=== PATIENT | female | born 1965 | race African-American/Black ===

== ENCOUNTER 2022-09-17 16:18 | Emergency (ER) | payer SELFPAY ==
[~2022-09-17] VITALS: Ht 172.7 cm; Wt 59.0 kg
[2022-09-17 17:21] LABS: BASOPHILS % 0.9 % (0.0-2.0); EOSINOPHILS % 0.5 % (0.0-5.0); HEMATOCRIT. 40.2 % (36.0-48.0); HEMOGLOBIN. 13.5 g/dL (12.0-16.0); LYMPHOCYTES % 33.3 % (20.0-50.0); MEAN CORPUSCULAR VOLUME 89.7 fL (81.0-99.0); MEAN PLATELET VOLUME 8.3 fl (7.4-10.4); MONOCYTES % 6.1 % (2.0-8.0); NEUTROPHILS % 59.2 % (40.0-76.0); PLATELET 160 x1000/uL (130-400); RED BLOOD CELL COUNT 4.49 mill/uL (4.2-5.4); RED CELL DISTRIBUTION WIDTH 14.2 % (11.6-14.6)
[2022-09-17 17:29] LABS: CHLORIDE 109 mEq/L (98-107)
[2022-09-17 17:34] LABS: ETHANOL BLOOD < 10 mg/dL
[2022-09-17 18:05] VITALS: BP 127/81
== END 2022-09-17 18:40 | disposition home or self-care (01) ==
LOC: ER 16:18 → CANBEDREQ 21:24
DX: R53.1 Weakness (principal)
CPT/HCPCS: 36415; 71045; 80053; 80320; 83880; 84484; 85025; 99285; G0480

== ENCOUNTER 2023-02-19 15:07 | Emergency (ER) | payer MEDICAID ==
[~2023-02-19] VITALS: Ht 170.2 cm; Wt 87.0 kg
[2023-02-19 15:13] VITALS: BP 115/63; PULSE 107; RESP 16; TEMP 98.7; O2SAT 95
[2023-02-19] MEDS ORDERED: EXCEDRIN (15:13)
== END 2023-02-19 19:07 | disposition home or self-care (01) ==
LOC: ER 15:07
DX: Z00.00 Encounter for general adult medical examination without abnormal findings (principal)
CPT/HCPCS: 82962; 99283

== ENCOUNTER 2023-05-10 15:04 | Emergency (ER) | payer SELFPAY ==
[~2023-05-10] VITALS: Ht 175.3 cm; Wt 60.0 kg
[~2023-05-10 15:04] MED LIST: EXCEDRIN
[2023-05-10 15:09] VITALS: BP 70/41; O2SAT 95
[2023-05-10] MEDS ORDERED: INSULIN REGULAR (HUMULIN R) 300UNITS/3ML VIAL IV ONE (15:15)
[2023-05-10] MEDS ORDERED: CALCIUM CHLORIDE 1,000 MG in DEXT 5% WATER 100 ML IV ONE (15:15)
[2023-05-10] MEDS ORDERED: DEXTROSE 50% WATER 50ML SYRINGE IV ONE (15:15)
[2023-05-10] MEDS ORDERED: SODIUM CHLORIDE 0.9% 1,000 ML IV ONE ×2 (15:15→16:00)
[2023-05-10] MEDS ORDERED: SODIUM BICARBONATE 8.4% 1 MEQ/ML 50ML SYR IV ONE (15:15)
[2023-05-10] MEDS ORDERED: ETOMIDATE 2MG/ML 10ML VIAL IV ONE (15:30)
[2023-05-10] MEDS ORDERED: VECURONIUM BROMIDE 10 MG/VIAL IV ONE (15:30)
[2023-05-10 15:40] VITALS: PULSE 37; RESP 20
[2023-05-10] MEDS ORDERED: MIDAZOLAM 100MG/100ML PMX 100 ML IV PRN (16:00)
[2023-05-10 16:13] VITALS: PULSE 70; RESP 20
[2023-05-10] MEDS ORDERED: AMIODARONE 150MG/100ML PREMIX 100 ML IV ONE (16:30)
== END 2023-05-10 20:04 ==
LOC: ER 15:04
DX: I46.9 Cardiac arrest, cause unspecified (principal)
CPT/HCPCS: 99285; 92950 ×2; 31500 ×2; 70450; 71045; 82962; 93005; J3490; J7060; J7030; J1815; 94002; J0282